=== PATIENT | female | born 1970 | race Caucasian/White ===

== ENCOUNTER 2017-05-25 14:19 | Emergency (ER) | payer MEDICAID ==
[~2017-05-25] VITALS: Ht 165.1 cm; Wt 114.0 kg
[~2017-05-25 14:19] MED LIST: CEPH500C5 PO; CITA20TA11 PO; CYCL-1 PO; DIPH25CA6 PO; HALO5TAB PO; IBUP-1986 PO; NAPR-1154 PO; ONDA4TAB6 PO; PHEN-824 PO; PROCHC RC; RANI150C4 PO; SULF1TAB49 PO; TRAZ300T2 PO
[2017-05-25 15:20] LABS: CLARITY,URINE CLEAR (Clear); COLOR,URINE STRAW (Yellow); GLUCOSE, URINE NEGATIVE (Neg); KETONES,URINE NEGATIVE (Neg); LEUKOCYTE ESTERASE ,URINE NEGATIVE (Neg); NITRITES, URINE NEGATIVE (Neg); OCCULT BLOOD,URINE NEGATIVE (Neg); PROTEIN,URINE NEGATIVE (Neg); UROBILINOGEN,URINE 0.2 E.U/dL (0.2-1.0)
[2017-05-25 15:21] LABS: UA COLLECTION TYPE CLN CATCH MIDSTREAM
[2017-05-25 16:15] LABS: BASOPHILS % (AUTO) 0.3 % (0-1); EOSINOPHILS # (AUTO) 0.1 X10'3 (0-0.9); EOSINOPHILS % (AUTO) 0.7 % (0-6); HEMATOCRIT 45.5 % (35.0-45.0); HEMOGLOBIN 15.3 g/dl (12.0-16.0); LYMPHOCYTES # (AUTO) 3.2 X10'3 (1.1-4.8); LYMPHOCYTES % (AUTO) 19.4 % (21-51); MEAN CORPUSCULAR HEMOGLOBIN 31.4 PG (27.0-31.0); MEAN CORPUSCULAR HGB CONC 33.7 % (33.0-36.5); MEAN CORPUSCULAR VOLUME 93.3 FL (78-98); MEAN PLATELET VOLUME 7.6 FL (7.4-10.4); MONOCYTES # (AUTO) 0.6 X10'3 (0-0.9); MONOCYTES % (AUTO) 3.7 % (2-12); NEUTROPHILS # (AUTO) 12.5 X10'3 (1.8-7.7); NEUTROPHILS % (AUTO) 75.9 % (42-75); PLATELET COUNT 270 X10'3 (140-440); RED BLOOD COUNT 4.88 X10'6 (4.20-5.60); RED CELL DISTRIBUTION WIDTH 14.9 % (11.5-14.5); WHITE BLOOD COUNT 16.5 X10'3 (4.5-11.0)
[2017-05-25 16:32] LABS: ALANINE AMINOTRANSFERASE 31 U/L (12-78); ALBUMIN 3.7 G/DL (3.4-5.0); ALBUMIN/GLOBULIN RATIO 0.9 (1.1-1.5); ALKALINE PHOSPHATASE 114 IU/L (46-116); ANION GAP 8 (8-16); ASPARTATE AMINO TRANSFERASE 22 U/L (10-37); BILIRUBIN,TOTAL 0.2 MG/DL (0.1-1.0); BLOOD UREA NITROGEN 14 MG/DL (7-18); BUN/CREATININE RATIO 11.9 (6.6-38.0); CALCIUM 9.5 MG/DL (8.5-10.1); CHLORIDE 101 MMOL/L (99-107); CREATININE 1.18 MG/DL (0.40-0.90); GLUCOSE 184 MG/DL (70-104); LIPASE 180 U/L (73-393); POTASSIUM 4.1 MMOL/L (3.5-5.1); SODIUM 137 MMOL/L (135-145); TOTAL CARBON DIOXIDE 27.7 MMOL/L (24-32); TOTAL PROTEIN 7.6 G/DL (6.4-8.2); eGFR 50 ML/MIN
[2017-05-25] MEDS ORDERED: IBUP-1984 PO (16:41)
[2017-05-25 16:46] VITALS: BP 150/73
== END 2017-05-25 16:46 | disposition home or self-care (01) ==
LOC: ER 14:21
DX: D72.829 Elevated white blood cell count, unspecified (principal); E78.00 Pure hypercholesterolemia, unspecified; J44.9 Chronic obstructive pulmonary disease, unspecified; E11.9 Type 2 diabetes mellitus without complications; F17.200 Nicotine dependence, unspecified, uncomplicated; F12.10 Cannabis abuse, uncomplicated; K21.9 Gastro-esophageal reflux disease without esophagitis; Z88.6 Allergy status to analgesic agent; Z88.1 Allergy status to other antibiotic agents; Z88.0 Allergy status to penicillin; Z88.7 Allergy status to serum and vaccine; Z88.8 Allergy status to other drugs, medicaments and biological substances
CPT/HCPCS: 36415; 71046; 74176; 80053; 81003; 83690; 85025; 99285

== ENCOUNTER 2017-06-02 20:17 | Emergency (ER) | payer MEDICAID ==
[~2017-06-02] VITALS: Ht 167.6 cm; Wt 114.5 kg
[~2017-06-02 20:17] MED LIST changes: +IBUP-1984 PO; -SULF1TAB49 PO
[2017-06-02] MEDS ORDERED: CYCL-1 PO (21:10)
[2017-06-02 21:32] VITALS: BP 136/71
== END 2017-06-02 21:33 | disposition home or self-care (01) ==
LOC: ER 20:18
DX: S39.012A Strain of muscle, fascia and tendon of lower back, initial encounter (principal); E78.00 Pure hypercholesterolemia, unspecified; J44.9 Chronic obstructive pulmonary disease, unspecified; K21.9 Gastro-esophageal reflux disease without esophagitis; G89.29 Other chronic pain; E11.9 Type 2 diabetes mellitus without complications; F12.10 Cannabis abuse, uncomplicated; F17.200 Nicotine dependence, unspecified, uncomplicated; Z90.49 Acquired absence of other specified parts of digestive tract; Z90.710 Acquired absence of both cervix and uterus; Z59.0 Homelessness; Z88.0 Allergy status to penicillin; Z88.1 Allergy status to other antibiotic agents; Z88.5 Allergy status to narcotic agent; X58.XXXA Exposure to other specified factors, initial encounter; Y93.89 Activity, other specified; Y92.89 Other specified places as the place of occurrence of the external cause; Y99.8 Other external cause status
CPT/HCPCS: 96372; 99284; J2270

== ENCOUNTER 2017-06-17 18:15 | Emergency (ER) | payer MEDICAID ==
[~2017-06-17] VITALS: Ht 165.1 cm; Wt 115.0 kg
[2017-06-17 21:12] LABS: URINE HCG NEGATIVE (NEG)
[2017-06-17 21:14] LABS: CLARITY,URINE CLEAR (Clear); COLOR,URINE YELLOW (Yellow); GLUCOSE, URINE NEGATIVE (Neg); KETONES,URINE NEGATIVE (Neg); LEUKOCYTE ESTERASE ,URINE NEGATIVE (Neg); NITRITES, URINE NEGATIVE (Neg); OCCULT BLOOD,URINE NEGATIVE (Neg); PH,URINE 5.5 (4.8-8.0); PROTEIN,URINE NEGATIVE (Neg); UROBILINOGEN,URINE 0.2 E.U/dL (0.2-1.0)
[2017-06-17 21:15] LABS: UA COLLECTION TYPE CLN CATCH MIDSTREAM
[2017-06-17] MEDS ORDERED: HYDROmorphone 2mg tablet PO PRN (22:35)
[2017-06-17] MEDS ORDERED: proCHLORperazine 10mg tablet PO ONE (22:45)
[2017-06-17 22:59] VITALS: BP 132/88
== END 2017-06-17 23:02 | disposition home or self-care (01) ==
LOC: ER 18:16
DX: R07.81 Pleurodynia (principal); R10.32 Left lower quadrant pain; G89.29 Other chronic pain; E78.00 Pure hypercholesterolemia, unspecified; J44.9 Chronic obstructive pulmonary disease, unspecified; K21.9 Gastro-esophageal reflux disease without esophagitis; E11.9 Type 2 diabetes mellitus without complications; F12.10 Cannabis abuse, uncomplicated; Z90.49 Acquired absence of other specified parts of digestive tract; Z90.710 Acquired absence of both cervix and uterus; Z98.890 Other specified postprocedural states; Z59.0 Homelessness; Z56.0 Unemployment, unspecified; Z85.89 Personal history of malignant neoplasm of other organs and systems; Z88.0 Allergy status to penicillin; Z88.1 Allergy status to other antibiotic agents; Z88.5 Allergy status to narcotic agent; Z88.8 Allergy status to other drugs, medicaments and biological substances; Z79.899 Other long term (current) drug therapy
CPT/HCPCS: 81003; 81025; 99284; Q0164

== ENCOUNTER 2018-02-25 13:24 | Emergency (ER) | payer MEDICAID ==
[~2018-02-25] VITALS: Ht 165.1 cm; Wt 95.0 kg
[~2018-02-25 13:24] MED LIST changes: +CITA-278 PO; -CITA20TA11 PO; -IBUP-1984 PO
[2018-02-25] MEDS ORDERED: ketorolac trometh inj. 60 MG/2 ML VIAL IM ONE (15:00)
[2018-02-25] MEDS ORDERED: ORPH100T2 PO (15:02)
[2018-02-25 15:25] VITALS: BP 129/101
[2018-02-28] MEDS ORDERED: CYCL-1 PO (12:24)
== END 2018-02-25 15:26 | disposition home or self-care (01) ==
LOC: ER 13:25
DX: M54.5 Low back pain (principal); E78.00 Pure hypercholesterolemia, unspecified; J44.9 Chronic obstructive pulmonary disease, unspecified; K21.9 Gastro-esophageal reflux disease without esophagitis; E11.9 Type 2 diabetes mellitus without complications; G89.29 Other chronic pain; F12.90 Cannabis use, unspecified, uncomplicated; Z88.0 Allergy status to penicillin; Z88.1 Allergy status to other antibiotic agents; Z88.6 Allergy status to analgesic agent; Z88.7 Allergy status to serum and vaccine; Z79.899 Other long term (current) drug therapy; Z56.0 Unemployment, unspecified; Z59.0 Homelessness; Z90.49 Acquired absence of other specified parts of digestive tract; Z90.710 Acquired absence of both cervix and uterus; Z90.89 Acquired absence of other organs; Z90.721 Acquired absence of ovaries, unilateral; Z90.6 Acquired absence of other parts of urinary tract; Z87.19 Personal history of other diseases of the digestive system
CPT/HCPCS: 96372; 99283; J1885

== ENCOUNTER 2018-04-22 12:09 | Emergency (ER) | payer MEDICAID ==
[~2018-04-22 12:09] MED LIST changes: +ORPH100T2 PO
[2018-04-22 13:56] LABS: BASOPHILS # (AUTO) 0.1 X10'3 (0-0.2); BASOPHILS % (AUTO) 0.3 % (0-1); EOSINOPHILS # (AUTO) 0.4 X10'3 (0-0.9); EOSINOPHILS % (AUTO) 2.6 % (0-6); HEMATOCRIT 46.7 % (35.0-45.0); HEMOGLOBIN 15.2 g/dl (12.0-16.0); LYMPHOCYTES # (AUTO) 1.7 X10'3 (1.1-4.8); LYMPHOCYTES % (AUTO) 10.8 % (21-51); MEAN CORPUSCULAR HEMOGLOBIN 29.5 PG (27.0-31.0); MEAN CORPUSCULAR HGB CONC 32.5 % (33.0-36.5); MEAN CORPUSCULAR VOLUME 90.9 FL (78-98); MEAN PLATELET VOLUME 8.2 FL (7.4-10.4); MONOCYTES # (AUTO) 0.7 X10'3 (0-0.9); MONOCYTES % (AUTO) 4.1 % (2-12); NEUTROPHILS # (AUTO) 13.4 X10'3 (1.8-7.7); NEUTROPHILS % (AUTO) 82.2 % (42-75); PLATELET COUNT 206 X10'3 (140-440); RED BLOOD COUNT 5.14 X10'6 (4.20-5.60); RED CELL DISTRIBUTION WIDTH 15.8 % (11.5-14.5); WHITE BLOOD COUNT 16.3 X10'3 (4.5-11.0)
[2018-04-22] MEDS ORDERED: ipratropium 0.5 MG/2.5ML nebule IH ONE (14:05)
[2018-04-22] MEDS ORDERED: predniSONE 20 mg tablet PO ONE (14:05)
[2018-04-22] MEDS ORDERED: azithromycin 250mg tablet PO ONE (14:05)
[2018-04-22] MEDS ORDERED: benzonatate 100mg capsule PO ONE (14:05)
[2018-04-22] MEDS ORDERED: albuterol 2.5 MG/3 ML nebule CONTNEB PRN (14:05)
[2018-04-22 14:14] LABS: ALANINE AMINOTRANSFERASE 36 U/L (12-78); ALBUMIN 3.7 G/DL (3.4-5.0); ALKALINE PHOSPHATASE 110 IU/L (46-116); ANION GAP 13 (8-16); ASPARTATE AMINO TRANSFERASE 27 U/L (10-37); BILIRUBIN,TOTAL 0.4 MG/DL (0.1-1.0); BLOOD UREA NITROGEN 6 MG/DL (7-18); BUN/CREATININE RATIO 6.3 (6.6-38.0); CALCIUM 9.3 MG/DL (8.5-10.1); CHLORIDE 102 MMOL/L (99-107); CREATININE 0.95 MG/DL (0.40-0.90); GLUCOSE 138 MG/DL (70-104); POTASSIUM 4.2 MMOL/L (3.5-5.1); SODIUM 137 MMOL/L (135-145); TOTAL CARBON DIOXIDE 22.4 MMOL/L (24-32); TOTAL PROTEIN 7.4 G/DL (6.4-8.2); eGFR 64 ML/MIN
[2018-04-22] MEDS ORDERED: AZIT-63 PO (14:44)
[2018-04-22] MEDS ORDERED: BENZ-16 PO (14:44)
[2018-04-22] MEDS ORDERED: PRED20TA PO (14:44)
[2018-04-22 17:44] VITALS: BP 133/54
== END 2018-04-22 17:52 | disposition home or self-care (01) ==
LOC: ER 12:09
DX: J18.1 Lobar pneumonia, unspecified organism (principal); J44.1 Chronic obstructive pulmonary disease with (acute) exacerbation; J06.9 Acute upper respiratory infection, unspecified; F17.200 Nicotine dependence, unspecified, uncomplicated; E78.00 Pure hypercholesterolemia, unspecified; K21.9 Gastro-esophageal reflux disease without esophagitis; E11.9 Type 2 diabetes mellitus without complications; G89.29 Other chronic pain; M79.7 Fibromyalgia; F12.90 Cannabis use, unspecified, uncomplicated; Z59.0 Homelessness; Z56.0 Unemployment, unspecified; Z90.49 Acquired absence of other specified parts of digestive tract; Z90.710 Acquired absence of both cervix and uterus; Z98.890 Other specified postprocedural states; Z88.0 Allergy status to penicillin; Z88.6 Allergy status to analgesic agent; Z88.1 Allergy status to other antibiotic agents; Z88.5 Allergy status to narcotic agent; Z79.899 Other long term (current) drug therapy
CPT/HCPCS: 36415; 71046; 80053; 85025; 94640; 99284; J7512

== ENCOUNTER 2019-01-08 18:49 | Emergency (ER) | payer MEDICAID ==
[~2019-01-08] VITALS: Ht 165.1 cm; Wt 11.4 kg
[~2019-01-08 18:49] MED LIST changes: -CEPH500C5 PO; -CITA-278 PO; +CITA20TA28 PO; +DIPH25CA52 PO; -DIPH25CA6 PO
[2019-01-08] MEDS ORDERED: LIDOcaine 1% w/epiNEPHrine 1:200,000 30ml vial IM ONE (20:15)
[2019-01-08] MEDS ORDERED: DOXY100C43 PO (21:11)
[2019-01-08 21:22] VITALS: BP 167/80
== END 2019-01-08 21:20 | disposition home or self-care (01) ==
LOC: ER 18:50
DX: N76.2 Acute vulvitis (principal); N76.89 Other specified inflammation of vagina and vulva; E78.00 Pure hypercholesterolemia, unspecified; J44.9 Chronic obstructive pulmonary disease, unspecified; E11.9 Type 2 diabetes mellitus without complications; G89.29 Other chronic pain; F41.9 Anxiety disorder, unspecified; M79.7 Fibromyalgia; F32.9 Major depressive disorder, single episode, unspecified; F20.9 Schizophrenia, unspecified; K21.9 Gastro-esophageal reflux disease without esophagitis; F12.90 Cannabis use, unspecified, uncomplicated; Z90.49 Acquired absence of other specified parts of digestive tract; Z90.710 Acquired absence of both cervix and uterus; Z98.890 Other specified postprocedural states; Z90.721 Acquired absence of ovaries, unilateral; Z90.89 Acquired absence of other organs; Z59.0 Homelessness; Z56.0 Unemployment, unspecified; Z85.43 Personal history of malignant neoplasm of ovary; Z88.0 Allergy status to penicillin; Z88.1 Allergy status to other antibiotic agents; Z88.5 Allergy status to narcotic agent; Z88.8 Allergy status to other drugs, medicaments and biological substances; Z88.7 Allergy status to serum and vaccine; Z79.899 Other long term (current) drug therapy
CPT/HCPCS: 10160; 87070; 99284

== ENCOUNTER 2019-02-20 12:38 | Emergency (ER) | payer MEDICAID ==
[~2019-02-20] VITALS: Ht 165.1 cm; Wt 125.0 kg
[2019-02-20 13:56] VITALS: BP 137/93
--- NOTE | 2019-02-20 13:57 | NUR ---
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
[2019-02-20] MEDS ORDERED: PRED20TA PO (14:43)
== END 2019-02-20 14:54 | disposition home or self-care (01) ==
LOC: ER 12:39
DX: R51 Headache (principal); R20.2 Paresthesia of skin; E78.00 Pure hypercholesterolemia, unspecified; J44.9 Chronic obstructive pulmonary disease, unspecified; K21.9 Gastro-esophageal reflux disease without esophagitis; E11.9 Type 2 diabetes mellitus without complications; G89.29 Other chronic pain; M79.7 Fibromyalgia; F12.90 Cannabis use, unspecified, uncomplicated; Z90.49 Acquired absence of other specified parts of digestive tract; Z98.890 Other specified postprocedural states; Z90.710 Acquired absence of both cervix and uterus; Z59.0 Homelessness; Z56.0 Unemployment, unspecified; Z87.891 Personal history of nicotine dependence; Z88.0 Allergy status to penicillin; Z88.6 Allergy status to analgesic agent; Z88.1 Allergy status to other antibiotic agents; Z88.5 Allergy status to narcotic agent; Z79.899 Other long term (current) drug therapy
CPT/HCPCS: 70450; 72125; 99284

== ENCOUNTER 2019-04-29 12:09 | Emergency (ER) | payer MEDICAID ==
[2019-04-29 12:29] VITALS: BP 120/53
[2019-04-29] MEDS ORDERED: DOXY100C43 PO (14:24)
== END 2019-04-29 14:33 | disposition home or self-care (01) ==
LOC: ER 12:09
DX: N61.1 Abscess of the breast and nipple (principal); E78.00 Pure hypercholesterolemia, unspecified; J44.9 Chronic obstructive pulmonary disease, unspecified; K21.9 Gastro-esophageal reflux disease without esophagitis; Z87.11 Personal history of peptic ulcer disease; E11.9 Type 2 diabetes mellitus without complications; G89.29 Other chronic pain; M79.7 Fibromyalgia; F41.9 Anxiety disorder, unspecified; F32.9 Major depressive disorder, single episode, unspecified; F20.9 Schizophrenia, unspecified; F12.90 Cannabis use, unspecified, uncomplicated; Z88.0 Allergy status to penicillin; Z88.1 Allergy status to other antibiotic agents; Z88.6 Allergy status to analgesic agent; Z79.899 Other long term (current) drug therapy; Z90.49 Acquired absence of other specified parts of digestive tract; Z90.710 Acquired absence of both cervix and uterus; Z98.890 Other specified postprocedural states; Z56.0 Unemployment, unspecified; Z59.0 Homelessness; Z90.722 Acquired absence of ovaries, bilateral
CPT/HCPCS: 99283

== ENCOUNTER 2020-01-18 06:53 | Day surgery (SDC) | payer MEDICAID ==
[2020-01-15 10:31] LABS: BASOPHILS # (AUTO) 0.1 X10'3 (0-0.2); BASOPHILS % (AUTO) 1.1 % (0-1); EOSINOPHILS % (AUTO) 10.9 % (0-6); LYMPHOCYTES # (AUTO) 2.6 X10'3 (1.1-4.8); LYMPHOCYTES % (AUTO) 28.6 % (21-51); MEAN CORPUSCULAR HEMOGLOBIN 28.4 PG (27.0-31.0); MEAN CORPUSCULAR HGB CONC 32.8 g/dL (33.0-36.5); MEAN CORPUSCULAR VOLUME 86.7 FL (78-98); MEAN PLATELET VOLUME 7.3 FL (7.4-10.4); MONOCYTES # (AUTO) 0.5 X10'3 (0-0.9); MONOCYTES % (AUTO) 5.8 % (2-12); NEUTROPHILS # (AUTO) 4.9 X10'3 (1.8-7.7); NEUTROPHILS % (AUTO) 53.6 % (42-75); PRE OP HEMATOCRIT 46.8 % (35.0-45.0); PRE OP HEMOGLOBIN 15.3 g/dL (12.0-16.0); PRE OP PLATELET COUNT 371 X10'3 (140-440)
[2020-01-15 10:44] LABS: ALBUMIN 3.7 G/DL (3.4-5.0); ALBUMIN/GLOBULIN RATIO 0.8 (1.1-1.5); ALKALINE PHOSPHATASE 98 IU/L (46-116); BLOOD UREA NITROGEN 9 MG/DL (7-18); BUN/CREATININE RATIO 8.3 (6.6-38.0); CALCIUM 9.2 MG/DL (8.5-10.1); CHLORIDE 103 MMOL/L (99-107); CREATININE 1.08 MG/DL (0.40-0.90); PRE OP ALT 38 U/L (30-65); PRE OP ANION GAP 12 (8-16); PRE OP AST 35 U/L (10-37); PRE OP BILIRUB, TOTAL 0.6 MG/DL (0.0-1.0); PRE OP GLUCOSE 112 MG/DL (70-104); PRE OP POTASSIUM 4.2 MMOL/L (3.4-5.1); PRE OP SODIUM 138 MMOL/L (135-145); TOTAL CARBON DIOXIDE 23.4 MMOL/L (24-32); TOTAL PROTEIN 8.1 G/DL (6.4-8.2); eGFR 54 ML/MIN
[~2020-01-18] VITALS: Ht 165.1 cm; Wt 102.7 kg
[2020-01-18] VITALS (8 sets, daily range): BP systolic 107–140; BP diastolic 63–83
[~2020-01-18 06:53] MED LIST changes: +ALBU18HF2 INH; +AMA1T PO; +ATOM25CA6 PO; +CALC-829 PO; +CITA20TA27 PO; -CITA20TA28 PO; -CYCL-1 PO; +DIPH25CA46 PO; -DIPH25CA52 PO; +GABA-534 PO; -IBUP-1986 PO; +LISI2.5T2 PO; +LORA10TA7 PO; +METF-438 PO; +MONT10TA26 PO; -NAPR-1154 PO; +NAPR-996 PO; +OMEP40CA13 PO; -ONDA4TAB6 PO; -ORPH100T2 PO; -PHEN-824 PO; +PRAZ5CAP2 PO; -PROCHC RC; -RANI150C4 PO; +TIZA4CAP PO; +TRAZ-251 PO; -TRAZ300T2 PO; +ZOLP10TA PO; +famotidine 20mg tablet PO ONE; +ringers solution, lacted 1,000 ML IV SCH; +vancomycin 1,500 MG in NS 300ml IV soln IV ONE
[2020-01-18] MEDS ORDERED: LIDOcaine 1% 30ml preserv. free vial ONE (07:14)
[2020-01-18] MEDS ORDERED: ringers solution, lacted 1,000 ML IV SCH (07:18)
[2020-01-18] MEDS ORDERED: meperidine/PF 25mg/ml syringe IV PRN ×3 (07:20)
[2020-01-18] MEDS ORDERED: morphine 4 MG/ML inj SYRINge IV PRN (07:20)
[2020-01-18] MEDS ORDERED: morphine 2 MG/ML inj. syringe IV PRN (07:20)
[2020-01-18] MEDS ORDERED: ondansetron/PF 4mg/2ml inj IV PRN (07:20)
[2020-01-18] MEDS ORDERED: proCHLORperazine 10 MG/2 ml inj IV PRN (07:20)
[2020-01-18] MEDS ORDERED: BUPIVAcaine/PF 2.5 mg/ml (0.25%) 30ml vial ONE (09:37)
[2020-01-18] MEDS ORDERED: MIDAZolam 5mg/5ml vial ONE (09:51)
[2020-01-18] MEDS ORDERED: fentaNYL/PF 50MCG/1 ML 2ML syringe ONE (09:51)
[2020-01-18] MEDS ORDERED: propofol inj 20 ML IV ONE (09:57)
[2020-01-18] MEDS ORDERED: ketorolac trometh. 30mg/ml inj. ONE (09:58)
[2020-01-18] MEDS ORDERED: meperidine/PF 25mg/ml syringe ONE (10:08)
--- NOTE | 2020-01-18 10:23 | NUR ---
Received from OR via [facility], accompanied by Anesthesiologist DR GONZALEZ and report given by Anesthesiologist. PT DROWSY, DENIES PAIN, RIGHT HAND/ARM TO ELBOW W/TYLOR WRAP COVERING INCISION/DRSG CDI. Addendum: 01/18/20 at 1140 by Cherelle Valderrama RN Amended: Links added.
--- NOTE | 2020-01-18 12:00 | NUR ---
PT UP AMBULATING SAFELY, VOIDED, PT UNABLE TO CONTACT HER RIDE HOME, AWAITING CAB FOR PICK-UP, APPROVED BY DR LOWE. Addendum: 01/18/20 at 1202 by Cherelle Valderrama RN Amended: Links added.
[2020-01-18] MEDS ORDERED: BUPIVAcaine/PF 2.5 mg/ml (0.25%) 30ml vial IJ ONE (12:57)
--- NOTE | 2020-01-18 13:03 | NUR ---
[facility] ARRIVED, PT REMAINS STABLE, D/C INSTRUCTIONS GIVEN AND GONE OVER W/PT WHO VERBALIZED UNDERSTANDING, PT D/CD TO HOME VIA W/C TO [facility] W/O INCIDENT. Addendum: 01/18/20 at 1322 by Cherelle Valderrama RN Amended: Links added.
== END 2020-01-18 13:03 | disposition home or self-care (01) ==
LOC: PAS 06:53
PROVIDERS: ATTEND Orthopaedic Surgery Hand Surgery
DX: G56.01 Carpal tunnel syndrome, right upper limb (principal); G56.21 Lesion of ulnar nerve, right upper limb; Z20.828 Contact with and (suspected) exposure to other viral communicable diseases
CPT/HCPCS: 29848; 36415; 64718; 80053; 82948; 85025; 87635; 93005; J1885; J2001; J2175; J2250; J2704; J3010; J3370; J3490; J7040; A4215; A4615; A6449; A7000; J7120

== ENCOUNTER 2020-02-22 07:41 | Day surgery (SDC) | payer MEDICAID ==
[2020-02-18 12:18] LABS: BASOPHILS # (AUTO) 0.1 X10'3 (0-0.2); BASOPHILS % (AUTO) 1.3 % (0-1); EOSINOPHILS # (AUTO) 0.3 X10'3 (0-0.9); EOSINOPHILS % (AUTO) 2.9 % (0-6); LYMPHOCYTES # (AUTO) 3.3 X10'3 (1.1-4.8); LYMPHOCYTES % (AUTO) 32.8 % (21-51); MEAN CORPUSCULAR HEMOGLOBIN 28.9 PG (27.0-31.0); MEAN CORPUSCULAR HGB CONC 33.1 g/dL (33.0-36.5); MEAN CORPUSCULAR VOLUME 87.3 FL (78-98); MEAN PLATELET VOLUME 6.9 FL (7.4-10.4); MONOCYTES # (AUTO) 0.5 X10'3 (0-0.9); MONOCYTES % (AUTO) 4.7 % (2-12); NEUTROPHILS # (AUTO) 5.9 X10'3 (1.8-7.7); NEUTROPHILS % (AUTO) 58.3 % (42-75); PRE OP HEMATOCRIT 41.5 % (35.0-45.0); PRE OP HEMOGLOBIN 13.7 g/dL (12.0-16.0); PRE OP PLATELET COUNT 355 X10'3 (140-440); RED BLOOD COUNT 4.75 X10'6 (4.20-5.60); RED CELL DISTRIBUTION WIDTH 16.5 % (11.5-14.5)
[2020-02-18 12:33] LABS: ALBUMIN 3.7 G/DL (3.4-5.0); ALBUMIN/GLOBULIN RATIO 1.1 (1.1-1.5); ALKALINE PHOSPHATASE 99 IU/L (46-116); BLOOD UREA NITROGEN 14 MG/DL (7-18); BUN/CREATININE RATIO 12.8 (6.6-38.0); CALCIUM 8.9 MG/DL (8.5-10.1); CHLORIDE 103 MMOL/L (99-107); CREATININE 1.09 MG/DL (0.40-0.90); PRE OP ALT 26 U/L (30-65); PRE OP ANION GAP 10 (8-16); PRE OP AST 20 U/L (10-37); PRE OP BILIRUB, TOTAL 0.4 MG/DL (0.0-1.0); PRE OP GLUCOSE 92 MG/DL (70-104); PRE OP POTASSIUM 4.2 MMOL/L (3.4-5.1); PRE OP SODIUM 137 MMOL/L (135-145); TOTAL CARBON DIOXIDE 24.1 MMOL/L (24-32); TOTAL PROTEIN 7.2 G/DL (6.4-8.2); eGFR 54 ML/MIN
[~2020-02-22] VITALS: Ht 167.6 cm; Wt 103.0 kg
[~2020-02-22 07:41] MED LIST changes: +albuterol 2.5 MG/3 ML nebule NEB ONE; +cefazolin/dext.iso 2gm/50ml 50 ML IV ONE; +midazolam 2 mg/2 ml injection ONE; -vancomycin 1,500 MG in NS 300ml IV soln IV ONE
[2020-02-22 08:00] VITALS: BP 137/69
[2020-02-22] MEDS ORDERED: LIDOcaine 1% 30ml preserv. free vial ONE (08:23)
[2020-02-22] MEDS ORDERED: proCHLORperazine 10 MG/2 ml inj IV PRN (08:35)
[2020-02-22] MEDS ORDERED: morphine 4 MG/ML inj SYRINge IV PRN (08:35)
[2020-02-22] MEDS ORDERED: ringers solution, lacted 1,000 ML IV SCH (08:35)
[2020-02-22] MEDS ORDERED: morphine 2 MG/ML inj. syringe IV PRN (08:35)
[2020-02-22] MEDS ORDERED: meperidine/PF 25mg/ml syringe IV PRN ×3 (08:35)
[2020-02-22] MEDS ORDERED: ondansetron/PF 4mg/2ml inj IV PRN (08:35)
[2020-02-22] MEDS ORDERED: BUPIVAcaine/PF 2.5mg/ml (0.25%) 10ml vial ONE (09:50)
[2020-02-22] MEDS ORDERED: fentaNYL/PF 50MCG/1 ML 2ML syringe ONE (10:40)
[2020-02-22] MEDS ORDERED: midazolam 2 mg/2 ml injection ONE (10:41)
[2020-02-22] MEDS ORDERED: ketorolac trometh. 30mg/ml inj. ONE (10:41)
[2020-02-22] MEDS ORDERED: BUPIVAcaine/PF 2.5 mg/ml (0.25%) 30ml vial ONE (11:06)
[2020-02-22 12:07] VITALS: BP 136/80
--- NOTE | 2020-02-22 12:07 | NUR ---
Received from OR via , accompanied by Anesthesiologist DR FRY and report given by Anesthesiolgist. AWAKENS TO VOICE. VITALS STABLE. DRESSINGS DI. [place] PAIN. FINGERS WARM AND PINK.
[2020-02-22 12:17] VITALS: BP 134/88
[2020-02-22 12:26] VITALS: BP 135/94
[2020-02-22 12:36] VITALS: BP 131/96
[2020-02-22 12:46] VITALS: BP 128/88
--- NOTE | 2020-02-22 13:07 | NUR ---
Received from OR via , accompanied by Anesthesiologist DR FRY and report given by Anesthesiolgist. AWAKE AND ORIENTED. VITALS STABLE. DRESSINGS DI. [place]IS[place] PAIN. HOME WITH [facility],HAS FRIENDS WHERE SHE IS STAYING.
== END 2020-02-22 13:07 | disposition home or self-care (01) ==
LOC: PAS 07:41
PROVIDERS: ATTEND Orthopaedic Surgery Hand Surgery
DX: G56.02 Carpal tunnel syndrome, left upper limb (principal); G56.22 Lesion of ulnar nerve, left upper limb; J44.9 Chronic obstructive pulmonary disease, unspecified; F32.9 Major depressive disorder, single episode, unspecified; F41.9 Anxiety disorder, unspecified; K21.9 Gastro-esophageal reflux disease without esophagitis; F25.9 Schizoaffective disorder, unspecified; G43.909 Migraine, unspecified, not intractable, without status migrainosus; E11.9 Type 2 diabetes mellitus without complications; E66.9 Obesity, unspecified; Z68.38 Body mass index [BMI] 38.0-38.9, adult; F17.210 Nicotine dependence, cigarettes, uncomplicated; Z90.710 Acquired absence of both cervix and uterus; Z98.890 Other specified postprocedural states; Z90.49 Acquired absence of other specified parts of digestive tract; Z90.721 Acquired absence of ovaries, unilateral; Z85.51 Personal history of malignant neoplasm of bladder; Z86.14 Personal history of Methicillin resistant Staphylococcus aureus infection; Z88.0 Allergy status to penicillin; Z88.5 Allergy status to narcotic agent; Z88.1 Allergy status to other antibiotic agents; Z88.8 Allergy status to other drugs, medicaments and biological substances; Z79.899 Other long term (current) drug therapy; Z20.828 Contact with and (suspected) exposure to other viral communicable diseases
CPT/HCPCS: 29848; 36415; 64718; 76937; 80053; 82948; 85025; 87635; J1885; J2001; J2250; J3010; J3490; A4215; A6449; A7000; J7120

== ENCOUNTER 2024-06-18 16:04 | Emergency (ER) | payer MEDICAID ==
[~2024-06-18] VITALS: Ht 165.1 cm; Wt 100.5 kg
[~2024-06-18 16:04] MED LIST changes: -AMA1T PO; -CALC-829 PO; +CALC-951 PO; +DIPH-1212 PO; -DIPH25CA46 PO; -GABA-534 PO; +GABA-535 PO; +GLIM1TAB57 PO; +LISI2.5T14 PO; -LISI2.5T2 PO; +MONT-40 PO; -MONT10TA26 PO; -OMEP40CA13 PO; +OMEP40CA21 PO; -albuterol 2.5 MG/3 ML nebule NEB ONE; -cefazolin/dext.iso 2gm/50ml 50 ML IV ONE; -famotidine 20mg tablet PO ONE; -midazolam 2 mg/2 ml injection ONE; -ringers solution, lacted 1,000 ML IV SCH
[2024-06-18 17:06] LABS: BASOPHILS % (AUTO) 0.4 % (0-1); EOSINOPHILS % (AUTO) 0.1 % (0-6); HEMATOCRIT 44.1 % (35.0-45.0); HEMOGLOBIN 14.9 g/dl (12.0-16.0); LYMPHOCYTES # (AUTO) 1.1 X10'3 (1.1-4.8); LYMPHOCYTES % (AUTO) 11.9 % (21-51); MEAN CORPUSCULAR HEMOGLOBIN 29.4 PG (27.0-31.0); MEAN CORPUSCULAR HGB CONC 33.7 g/dL (33.0-36.5); MEAN CORPUSCULAR VOLUME 87.1 FL (78-98); MEAN PLATELET VOLUME 7.4 FL (7.4-10.4); MONOCYTES # (AUTO) 0.3 X10'3 (0-0.9); MONOCYTES % (AUTO) 2.8 % (2-12); NEUTROPHILS # (AUTO) 7.8 X10'3 (1.8-7.7); NEUTROPHILS % (AUTO) 84.8 % (42-75); PLATELET COUNT 329 X10'3 (140-440); RED BLOOD COUNT 5.07 X10'6 (4.20-5.60); RED CELL DISTRIBUTION WIDTH 18.5 % (11.5-14.5); WHITE BLOOD COUNT 9.3 X10'3 (4.5-11.0)
[2024-06-18 17:14] LABS: BILIRUBIN,URINE NEGATIVE (Neg); CLARITY,URINE CLEAR (Clear); COLOR,URINE YELLOW (Yellow); GLUCOSE, URINE >=1000 mg/dl (Neg); KETONES,URINE NEGATIVE (Neg); LEUKOCYTE ESTERASE ,URINE NEGATIVE (Neg); NITRITES, URINE NEGATIVE (Neg); OCCULT BLOOD,URINE NEGATIVE (Neg); PROTEIN,URINE NEGATIVE (Neg)
[2024-06-18 17:15] LABS: URINE HCG NEGATIVE (NEG)
[2024-06-18 17:18] LABS: UA COLLECTION TYPE NON-SPECIFIED
[2024-06-18 17:21] LABS: BACTERIA,URINE NONE SEEN /HPF (Neg); RBC,URINE NONE SEEN /HPF (0-2); SQUAMOUS EPITHELIAL CELL,UR FEW /LPF (FEW); WBC,URINE NONE SEEN /HPF (0-4)
[2024-06-18 17:22] LABS: ALANINE AMINOTRANSFERASE 22 U/L (12-78); ALBUMIN 3.7 G/DL (3.4-5.0); ALBUMIN/GLOBULIN RATIO 0.8 (1.1-1.5); ALKALINE PHOSPHATASE 127 IU/L (46-116); ANION GAP 12 (8-16); ASPARTATE AMINO TRANSFERASE 22 U/L (10-37); BILIRUBIN,TOTAL 0.5 MG/DL (0.1-1.0); BLOOD UREA NITROGEN 16 MG/DL (7-18); BUN/CREATININE RATIO 12.2 (10.0-20.0); CALCIUM 8.9 MG/DL (8.5-10.1); CHLORIDE 100 MMOL/L (99-107); CREATININE 1.31 MG/DL (0.40-0.90); GLUCOSE 247 MG/DL (70-104); LIPASE 27 U/L (16-77); POTASSIUM 4.2 MMOL/L (3.5-5.1); SODIUM 132 MMOL/L (135-145); TOTAL CARBON DIOXIDE 19.9 MMOL/L (24-32); TOTAL PROTEIN 8.1 G/DL (6.4-8.2); eCRCL 46 ML/MIN; eGFR 43 ML/MIN
[2024-06-18] MEDS: normal saline 1000ML IV soln IVB ONE (19:45)
[2024-06-18] MEDS: ketorolac trometh 15mg/ml vial 15 MG/ML ML IM ONE (19:53)
[2024-06-18 21:34] VITALS: BP 130/76; PULSE 90; RESP 16; TEMP 98.6; O2SAT 99
== END 2024-06-18 21:35 | disposition home or self-care (01) ==
LOC: ER 16:05
DX: M54.50 Low back pain, unspecified (principal); R10.9 Unspecified abdominal pain; J44.9 Chronic obstructive pulmonary disease, unspecified; M79.7 Fibromyalgia; E78.00 Pure hypercholesterolemia, unspecified; F20.9 Schizophrenia, unspecified; F41.9 Anxiety disorder, unspecified; E11.9 Type 2 diabetes mellitus without complications; K21.9 Gastro-esophageal reflux disease without esophagitis; F32.A Depression, unspecified; F12.90 Cannabis use, unspecified, uncomplicated; Z85.51 Personal history of malignant neoplasm of bladder; Z85.41 Personal history of malignant neoplasm of cervix uteri; Z90.721 Acquired absence of ovaries, unilateral; Z88.0 Allergy status to penicillin; Z88.5 Allergy status to narcotic agent; Z88.7 Allergy status to serum and vaccine; Z88.1 Allergy status to other antibiotic agents; Z88.8 Allergy status to other drugs, medicaments and biological substances; Z90.49 Acquired absence of other specified parts of digestive tract; Z90.710 Acquired absence of both cervix and uterus; Z98.890 Other specified postprocedural states
CPT/HCPCS: 36415; 74176; 80053; 81001; 81025; 83690; 85025; 96360; 96372; 99285; J1885; J7030